=== PATIENT | female | born 1960 | race Caucasian/White ===

== ENCOUNTER 2016-12-18 07:21 | Emergency (ER) | payer OTHER ==
[2016-12-18 07:33] VITALS: BP 123/50
[2016-12-18] MEDS ORDERED: Fluorescein Sodium TOPICAL* 1 MG TEST ONE (07:51)
--- NOTE | 2016-12-18 08:10 | UC ---
Eye Complaint HPI - HPI Summary HPI Summary: 56 yo female with right eye redness and irritation x 2 days no d/d other than tearing medial FB sensation yesterday and that is where she is most painful no photophobia no purulent d/c no halos/floaters slight itch - History of Current Complaint Chief Complaint: UCEye Stated Complaint: RIGHT EYE COMPLAINT Time Seen by Provider: 12/18/16 07:36 Hx Obtained From: Patient Onset/Duration: Gradual Onset, Lasting Days Timing: Constant Severity Initially: Moderate Severity Currently: Moderate Pain Intensity: 4 Pain Scale Used: 0-10 Numeric Location of Injury: Conjunctiva Character: Foreign Body Sensation Aggravating Factor(s): Nothing Alleviating Factor(s): Nothing Associated Signs And Symptoms: Positive: Drainage (Clear) - Risk Factors Penetrating Injury Risk Factor: Negative Globe Rupture Risk Factors: Negative Acute Glaucoma Risk Factors: Negative Optic Artery Occlusion Risk Factors: Negative - Allergies/Home Medications Allergies/Adverse Reactions: Allergies Allergy/AdvReac Type Severity Reaction Status Date / Time Codeine Allergy Hallucinati Verified 12/18/16 07:29 ons Tetracyclines & Related Allergy Hives/Diff. Verified 12/18/16 07:29 Breathing/I tching Home Medications: Home Medications NK [No Home Medications Reported] 12/18/16 [History Confirmed 12/18/16] PMH/Surg Hx/FS Hx/Imm Hx Previously Healthy: Yes - Surgical History Surgical History: Yes Surgery Procedure, Year, and Place: hysterectomy - Family History Known Family History: Positive: Hypertension - Social History Alcohol Use: None Substance Use Type: None Smoking Status (MU): Former Smoker When Did the Patient Quit Smoking/Using Tobacco: 2009 Review of Systems Constitutional: Negative Skin: Negative Eyes: Eye Redness ENT: Negative Respiratory: Negative Cardiovascular: Negative Gastrointestinal: Negative Genitourinary: Negative Motor: Negative Neurovascular: Negative Musculoskeletal: Negative Neurological: Negative Psychological: Negative All Other Systems Reviewed And Are Negative: Yes Physical Exam Triage Information Reviewed: Yes Appearance: Well-Appearing, No Pain Distress, Well-Nourished Vital Signs: Initial Vital Signs Temp 98.2 F 12/18/16 07:29 Pulse 60 12/18/16 07:29 Resp 14 12/18/16 07:29 BP 123/50 12/18/16 07:29 Pulse Ox 98 12/18/16 07:29 Vital Signs Reviewed: Yes Eyes: Positive: Conjunctiva Inflamed - right eye nasal>temporal, no d/c, fundi benign, lazy left eye. globe not hard, EOMI, Other: - flourescein stain: negative ENT: Positive: Hearing grossly normal. Negative: Nasal congestion, Nasal drainage, Tonsillar exudate, Trismus Neck: Positive: Nontender, No Lymphadenopathy Respiratory: Positive: Chest non-tender, Lungs clear, Normal breath sounds Cardiovascular: Positive: RRR, No Murmur Bowel Sounds: Positive: Present Neurological Exam: Normal Neurological: Positive: Alert Psychological Exam: Normal Skin Exam: Normal Eye Complaint Course/Dx - Differential Dx/Diagnosis Provider Diagnoses: Right red eye of uncertain cause Discharge - Discharge Plan Condition: Stable Disposition: HOME Forms: *Gen. Provider Communication Referrals: Mata Ness MD [Medical Doctor] - Radha Rondon MD [Medical Doctor] - 1 Day Additional Instructions: I am unsure of the cause of your red eye You need to see a eye MD tomorrow If you have trouble making an appt let us know try ZADITOR eye drops (OTC)
== END 2016-12-18 08:09 | disposition home or self-care (01) ==
LOC: UCCORT 07:21
DX: H57.8 Other specified disorders of eye and adnexa (principal); Z88.5 Allergy status to narcotic agent; Z90.710 Acquired absence of both cervix and uterus; Z87.891 Personal history of nicotine dependence
CPT/HCPCS: 99202; A9270-GY; G0463